=== PATIENT | male | born 1995 | race Caucasian/White ===

== ENCOUNTER 2017-04-16 00:24 | Inpatient (IN) | payer MEDICAID ==
[~2017-04-16] VITALS: Ht 172.7 cm; Wt 90.9 kg
[2017-04-16 01:07] LABS: BASOPHIL % 0.4 % (0-2); PLATELET COUNT 328 x10^3mcL (130-400); RED CELL DISTRIBUTION WIDTH 12.9 % (11.5-14.5)
[2017-04-16 01:11] LABS: CALCIUM 9.3 mg/dL (8.5-10.1); CARBON DIOXIDE 29.9 mmol/L (21-32); CHLORIDE SERUM 103 mmol/L (98-107); CREATININE SERUM 0.9 mg/dL (0.7-1.3); GFR1 > 60 mL/min; GLUCOSE SERUM 110 mg/dL (74-106); POTASSIUM SERUM 3.9 mmol/L (3.5-5.1); SODIUM SERUM 140 mmol/L (136-145)
[2017-04-16 01:15] LABS: ALKALINE PHOSPHATASE 105 U/L (46-116); ALT/SGPT 35 U/L (16-63); AMYLASE 60 U/L (25-115); AST/SGOT 41 U/L (15-37); BILIRUBIN TOTAL 0.28 mg/dL (0.20-1.00); LIPASE 93 IU/L (73-393); TOTAL PROTEIN, SERUM 8.1 g/dL (6.4-8.2)
[2017-04-16] MEDS ORDERED: RISPERIDONE2 M1 PO (02:42)
[2017-04-16] MEDS ORDERED: BENZTROPINE ME0.5 MG PO (02:42)
[2017-04-16 04:19] VITALS: BP 113/61
[2017-04-16 04:21] LABS: CHOLESTEROL/HDL RATIO 3.7; MAGNESIUM 2.1 mg/dL (1.8-2.4); PHOSPHOROUS 4.5 mg/dL (2.5-4.9)
[2017-04-16 04:39] VITALS: Ht 172.7 cm; Wt 90.9 kg
[2017-04-16 07:39] VITALS: BP 116/65
[2017-04-16 10:45] VITALS: BP 115/66
[2017-04-16 12:59] VITALS: BP 98/62
[2017-04-16 16:34] VITALS: BP 111/66
[2017-04-16 17:03] LABS: microscopic required? NO
[2017-04-16 17:17] LABS: UA SPECIFIC GRAVITY 1.015 (1.005-1.035); urine erythrocyte NEGATIVE (NEGATIVE)
[2017-04-16 17:34] LABS: AMPHETAMINE QUAL UR NONE DETECTED (NEG <=1000)
[2017-04-16 21:19] VITALS: BP 111/64
[2017-04-17 06:01] VITALS: BP 111/68
[2017-04-17 06:45] LABS: BASOPHIL % 0.2 % (0-2); PLATELET COUNT 284 x10^3mcL (130-400); RED CELL DISTRIBUTION WIDTH 12.9 % (11.5-14.5)
[2017-04-17 07:02] LABS: ALKALINE PHOSPHATASE 104 U/L (46-116); ALT/SGPT 98 U/L (16-63); AST/SGOT 79 U/L (15-37); CALCIUM 8.9 mg/dL (8.5-10.1); CARBON DIOXIDE 28.1 mmol/L (21-32); CHLORIDE SERUM 104 mmol/L (98-107); CREATININE SERUM 0.8 mg/dL (0.7-1.3); GFR1 > 60 mL/min; GLUCOSE SERUM 98 mg/dL (74-106); MAGNESIUM 2.2 mg/dL (1.8-2.4); PHOSPHOROUS 5.5 mg/dL (2.5-4.9); POTASSIUM SERUM 4.2 mmol/L (3.5-5.1); SODIUM SERUM 141 mmol/L (136-145); TOTAL PROTEIN, SERUM 6.5 g/dL (6.4-8.2)
[2017-04-17 07:03] LABS: ALBUMIN 3.2 g/dL (3.4-5.0)
[2017-04-17 09:07] VITALS: BP 98/46
[2017-04-17 13:17] VITALS: BP 111/64
[2017-04-17 16:31] VITALS: BP 96/46
[2017-04-17 20:51] VITALS: BP 97/56
[2017-04-18 05:38] VITALS: BP 101/63
[2017-04-18 06:57] LABS: CALCIUM 8.9 mg/dL (8.5-10.1); CARBON DIOXIDE 30.2 mmol/L (21-32); CHLORIDE SERUM 104 mmol/L (98-107); CREATININE SERUM 0.9 mg/dL (0.7-1.3); GFR1 > 60 mL/min; GLUCOSE SERUM 90 mg/dL (74-106); MAGNESIUM 2.1 mg/dL (1.8-2.4); PHOSPHOROUS 4.4 mg/dL (2.5-4.9); POTASSIUM SERUM 4.2 mmol/L (3.5-5.1); SODIUM SERUM 141 mmol/L (136-145)
[2017-04-18 07:04] LABS: BASOPHIL % 0.5 % (0-2); PLATELET COUNT 274 x10^3mcL (130-400); RED CELL DISTRIBUTION WIDTH 12.8 % (11.5-14.5)
[2017-04-18 07:53] VITALS: BP 115/73
[2017-04-18] MEDS ORDERED: ACETAMINOPHEN-H1 TA1 PO (14:50)
[2017-04-18] MEDS ORDERED: MOT600 PO (14:50)
[2017-04-18] MEDS ORDERED: COL100 PO (14:51)
[2017-04-18 16:11] VITALS: BP 112/65
[2017-04-18 16:12] VITALS: BP 112/65
== END 2017-04-18 17:30 | disposition home or self-care (01) | DRG 263 ==
LOC: ED 00:24 → DU 03:30 → MU 04-17 10:17
PROVIDERS: Specialist; Student in an Organized Health Care Education/Training Program; Surgery; ADMIT Family Medicine Sports Medicine
PROC: 0FT44ZZ Resection of Gallbladder, Percutaneous Endoscopic Approach (ICD-10-PCS; principal; 2017-04-16 08:00)
DX: K80.00 Calculus of gallbladder with acute cholecystitis without obstruction (principal); E44.0 Moderate protein-calorie malnutrition; E78.5 Hyperlipidemia, unspecified; E83.39 Other disorders of phosphorus metabolism; K59.09 Other constipation; D64.9 Anemia, unspecified; F31.9 Bipolar disorder, unspecified; Z68.30 Body mass index [BMI] 30.0-30.9, adult
CPT/HCPCS: 83880; 84439; 90658; 90732; 94150; J1170; J1885; J2405; J2543; J2704; J2710; J3010; J3490; J7030; J7120

== ENCOUNTER 2017-10-21 21:28 | Emergency (ER) | payer OTHER ==
[~2017-10-21 21:28] MED LIST: ACETAMINOPHEN-H1 TA1 PO; BENZTROPINE ME0.5 MG PO; COL100 PO; MOT600 PO; RISPERIDONE2 M1 PO
== END 2017-10-21 22:36 | disposition left against medical advice (07) ==
LOC: ED 21:28
DX: Z53.21 Procedure and treatment not carried out due to patient leaving prior to being seen by health care provider (principal)

== ENCOUNTER 2017-10-22 13:53 | Emergency (ER) | payer OTHER ==
[~2017-10-22] VITALS: Ht 172.7 cm; Wt 92.1 kg
[2017-10-22 13:57] VITALS: Ht 172.7 cm; Wt 92.1 kg
[2017-10-22 14:31] LABS: BASOPHIL % 0.2 % (0-2); PLATELET COUNT 276 x10^3mcL (130-400); RED CELL DISTRIBUTION WIDTH 12.9 % (11.5-14.5)
[2017-10-22 14:41] LABS: CALCIUM 8.8 mg/dL (8.5-10.1); CARBON DIOXIDE 26.9 mmol/L (21-32); CHLORIDE SERUM 99 mmol/L (98-107); GFR1 > 60 mL/min; GLUCOSE SERUM 100 mg/dL (74-106); POTASSIUM SERUM 3.5 mmol/L (3.5-5.1); SODIUM SERUM 134 mmol/L (136-145)
[2017-10-22 14:49] LABS: ALBUMIN 3.6 g/dL (3.4-5.0); ALKALINE PHOSPHATASE 104 U/L (46-116); ALT/SGPT 37 U/L (16-63); AMYLASE 35 U/L (25-115); AST/SGOT 21 U/L (15-37); BILIRUBIN TOTAL 1.68 mg/dL (0.20-1.00); LIPASE 76 IU/L (73-393); TOTAL PROTEIN, SERUM 7.7 g/dL (6.4-8.2)
[2017-10-22 15:12] LABS: microscopic required? YES; urine erythrocyte TRACE (NEGATIVE)
[2017-10-22 15:46] LABS: AMPHETAMINE QUAL UR NONE DETECTED (NEG <=1000)
[2017-10-22 16:25] VITALS: BP 116/59
== END 2017-10-22 16:26 | disposition home or self-care (01) ==
LOC: ED 13:53
PROVIDERS: Emergency Medicine
DX: K59.00 Constipation, unspecified (principal); J45.909 Unspecified asthma, uncomplicated; F31.9 Bipolar disorder, unspecified; F20.9 Schizophrenia, unspecified; Z86.59 Personal history of other mental and behavioral disorders
CPT/HCPCS: J1885; J7030; J7613

== ENCOUNTER 2019-01-10 01:40 | Emergency (ER) | payer OTHER ==
[~2019-01-10] VITALS: Ht 177.8 cm; Wt 95.3 kg
[2019-01-10 01:49] VITALS: Ht 177.8 cm; Wt 95.3 kg
[2019-01-10 03:11] LABS: AMPHETAMINE QUAL UR NONE DETECTED (See below)
[2019-01-10 04:05] VITALS: BP 130/95
== END 2019-01-10 04:05 | disposition home or self-care (01) ==
LOC: ED 01:40
PROVIDERS: Emergency Medicine
DX: F22 Delusional disorders (principal); R20.2 Paresthesia of skin; F31.9 Bipolar disorder, unspecified; F20.9 Schizophrenia, unspecified; J45.909 Unspecified asthma, uncomplicated
CPT/HCPCS: J1200